=== PATIENT | male | born 2000 | race Caucasian/White ===

== ENCOUNTER 2023-10-27 12:31 | Emergency (ER) | payer OTHER ==
[~2023-10-27] VITALS: Ht 180.3 cm; Wt 95.3 kg
[2023-10-27 13:19] VITALS: BP_SYST 130; PULSE 80; RESP 19; TEMP 97.7; O2SAT 96
[2023-10-27] MEDS: traMADol HCL HCL 50 MG TABLET (ULTRAM) PO ONE (13:49)
[2023-10-27] MEDS: KETOROLAC TROMETHAMINE 30 MG VIAL IM ONE (13:52)
[2023-10-27] MEDS ORDERED: TRAM50TA2 PO (14:27)
[2023-10-27] MEDS ORDERED: ACET-2634 PO (14:27)
[2023-10-27] MEDS ORDERED: IBUP-1969 PO (14:27)
[2023-10-27 15:18] VITALS: BP_SYST 130; PULSE 80; RESP 19; TEMP 97.7; O2SAT 96
== END 2023-10-27 15:18 | disposition home or self-care (01) ==
LOC: SED 12:31
DX: M54.50 Low back pain, unspecified (principal)
CPT/HCPCS: 99284; 72110; 72202; 96372; J1885